=== PATIENT | male | born 1990 | race American Indian/Alaskan Native ===

== ENCOUNTER 2022-04-17 05:49 | Day surgery (SDC) | payer BC, OTHER ==
[~2022-04-17] VITALS: Ht 175.3 cm; Wt 88.6 kg
[2022-04-17] MEDS ORDERED: OXYCODON-ACETA1 EAC2 PO (08:25)
[2022-04-17] MEDS ORDERED: IBUPROFEN600 MG PO (08:25)
[2022-04-17] MEDS ORDERED: ACETAMINOPHEN500 MG PO (08:25)
--- NOTE | 2022-04-17 08:46 | NUR ---
PT BACK TO DS RM 4 VIA STRETCHER AWAKE AND ALERT. PT DENIES ANY PAIN OR NAUSEA. ORANGE JUICE AND CRACKERS PROVIDED PER REQUEST. PT SIG OTHER AT BEDSIDE, DC CRITERIA EXPLAINED. CALL LIGHT WITHIN REACH.
--- NOTE | 2022-04-17 08:47 | NUR ---
04/17/22 0847 [place] Fan [id number] PT ARRIVED IN PACU WIDE AWAKE WITH NO C/O'S. 0820 DR AT BEDSIDE. ALL QUESTIONS ANSWERED. 0840 TO DS. REPORT GIVEN TO RN. GIRLFRIEND AT BEDSIDE. PT HAS SAMPLE OF LIPOMA AT BEDSIDE IN CONTAINER FROM SURGERY.
--- NOTE | 2022-04-17 09:49 | NUR ---
LE 0915 PATIENT ABLE TO EAT AND DRINK. PATIENT DENIES BEING NAUSEATED. LE 0945 PATIENT IS ALERT AND ORIENTED. BREATHING EQUAL AND UNLABORED. OXYGEN SATURATIONS ABOVE 95% ON ROOM AIR. PATIENT COMPLAINS OF 2/10 PAIN THAT IS TOLERABLE. PATIENT DENIES BEING NAUSEATED. SURGICAL SITE CLEAN, DRY AND INTACT. PATIENT UNABLE TO VOID. WATER GIVEN TO PATIENT. NO QUESTIONS AT THIS TIME. CALL LIGHT WITHIN REACH NO FUTHER NEEDS.
--- NOTE | 2022-04-17 10:47 | NUR ---
LE 1030 PATIENT ABLE TO VOID 200 MLS OF CLEAR AND YELLOW URINE. PATIENT HAS MET DISCHARGE CRITERIA. IV D/C'D WNL. PATIENT DRESSED SELF AND TOLERATED IT WELL. DISCHARGE INSTURCTIONS GIVEN AND UNDERSTOOD. NO QUESTIONS AT THIS TIME. GIRLFRIEND IN ROOM. PATIENT WHEELED OUT OF FACILITY TO PRIVATE AUTO WITH GIRLFRIEND NO FUTHER NEEDS.
--- NOTE | 2022-04-18 08:10 | OR ---
[facility] [address] [place], [place] [address] Signed DATE OF OPERATION: 04/17/2022 SURGEON: Rogers Lee MD PREOPERATIVE DIAGNOSIS: Right infrainguinal groin soft tissue mass, 8 cm. POSTOPERATIVE DIAGNOSIS: Right infrainguinal groin soft tissue mass, 8 cm consistent with benign lipoma. PROCEDURE: Excision of right groin soft tissue mass 8 cm, subfascial. ANESTHESIA: General LMA, RUBBER CURER and local 10 mL of 0.25% Marcaine with epinephrine. INDICATION: This 31-year-old man is referred by [facility] (Dr. Chase Begum) with a soft tissue mass in the infrainguinal area. It is uncomfortable and has enlarged overtime. Clinical examination showed likely to be a benign lipoma. He is admitted at this time to undergo excision understanding the risk of bleeding, infection, recurrence, and other unforeseen complications. FINDINGS: Most likely this represents a benign multilobulated lipoma. It was excised to the deep fascial space and completely excised. A layered closure was accomplished. There were no complications. It measured about 8 cm in length. DESCRIPTION OF PROCEDURE: The patient was brought to the operating room, given a general LMA type anesthetic. The lower abdomen and groin were minimally clipped and prepared with a chlorhexidine solution and draped sterilely. Preoperative antibiotic Ancef was given. Sequential compression device stockings were used and heparin subcutaneously administered. An incision was made along the line of skin crease directly over the mass. Dissection was carried through the dermis with sharp and electrocautery dissection. Revealed was a lipomatous mass, which had a smooth contour and wall. This was manipulated out of the wound and fully resected using electrocautery down to the deep fascial space. Complete excision was undertaken. A portion was excised and the bulk of the specimen sent for pathology. Irrigation was undertaken. A 10 mL of 0.25% Marcaine with epinephrine was injected locally. Deep layer closure with interrupted 2-0 Vicryl was undertaken and Electronically Signed By: ROGERS LEE MD 04/18/22 0810 PATIENT NAME: AMELIA MCDONALD OPERATIVE REPORT DATE OF : 86 REPORT #: [id number] PHYSICIAN: ROGERS LEE MD PCP: CHASE BEGUM MD REPORT IS CONFIDENTIAL AND NOT TO BE RELEASED WITHOUT AUTHORIZATION [facility] [address] [place] [phone] Signed skin closed with a running subcuticular 3-0 Vicryl. Steri-Strips were applied as was an Acticoat dressing. BLOOD LOSS: Minimal. COMPLICATIONS: None. He was extubated and taken to the recovery room in good condition. CONCLUDING DIAGNOSIS: Probable benign multilobulated lipoma, completely excised. MD DO Day/SWAPNA /[id number] cc: Chase Begum MD Copies: CHASE BEGUM MD ~ Electronically Signed By: ROGERS LEE MD 04/18/22 0810 PATIENT NAME: AMELIA MCDONALD OPERATIVE REPORT DATE OF : 86 REPORT #: [id number] PHYSICIAN: ROGERS LEE MD PCP: CHASE BEGUM MD REPORT IS CONFIDENTIAL AND NOT TO BE RELEASED WITHOUT AUTHORIZATION
--- NOTE | 2022-04-19 12:34 | PATH ---
[facility] [address] [facility] [place] [place] [address] Signed SPECIMEN(S): A RIGHT GROIN SPECIMEN SOURCE: A. RIGHT GROIN CLINICAL HISTORY: Soft tissue mass in region of the right groin in the infra-inguinal space. FINAL PATHOLOGIC DIAGNOSIS: Right groin: - [place] lobulated adipose tissue consistent with lipoma. JVR:smh:C2NR MICROSCOPIC EXAMINATION: Histologic sections of all submitted blocks are examined by light microscopy. These findings, together with the gross examination, support the pathologic diagnosis. GROSS DESCRIPTION: The specimen, labeled "BS, right groin," is received in formalin and consists of single fragment of yellow-castillo fibroadipose tissue measuring 5.5 x 5.0 x 2.0 cm. The specimen is serially sectioned. Systems [employer] Programming Lead section is submitted in cassette A1. HH (under the direct supervision of a pathologist) The Gross Description was prepared using a voice recognition system. The report was reviewed for accuracy; however, sound-alike word errors, addition and/or deletions may occur. If there is any question about this report, please contact Client Services. PERFORMING LABORATORY: The technical component was performed by [facility], [address] [place] [id number] (CLIA# [id number]). Professional interpretation was performed by [facility], [address] [place] [id number] (CLIA#: [id number]). Diagnostician: Jose Mckeon MD Pathologist Electronically Signed 04/19/2022 PATIENT NAME: AMELIA MCDONALD PATHOLOGY DATE OF : 86 REPORT #: [id number] PHYSICIAN: SALLIE DELGADO PCP: CHASE STEVENSON MD REPORT IS CONFIDENTIAL AND NOT TO BE RELEASED WITHOUT AUTHORIZATION
== END 2022-04-17 10:30 | disposition home or self-care (01) ==
LOC: DS 05:49
PROVIDERS: ATTEND Surgery
PROC: 0JBB0ZZ Excision of Perineum Subcutaneous Tissue and Fascia, Open Approach (ICD-10-PCS; principal; 2022-04-17 07:30)
DX: D17.23 Benign lipomatous neoplasm of skin and subcutaneous tissue of right leg (principal)
CPT/HCPCS: J0690; J1100; J1644; J1885; J2001; J2405; J2704; J3010; J7121